=== PATIENT | female | born 1970 | race Caucasian/White ===

== ENCOUNTER → 2018-07-14 | Outpatient (CLI) | payer OTHER ==
[~2018-07-14] MED LIST: IOPAMIDOL (ISOVUE 370) 100 ML BTL IV ONE
== END ==
LOC: FIMAGING 15:12
PROVIDERS: ATTEND Internal Medicine
DX: R51 Headache (principal); R44.2 Other hallucinations
CPT/HCPCS: Q9967

== ENCOUNTER → 2018-07-30 | Outpatient (CLI) | payer OTHER | LOC: FIMAGING 10:13 | PROVIDERS: ATTEND Psychiatry & Neurology Neurology | DX: R44.2 Other hallucinations (principal); M48.02 Spinal stenosis, cervical region ==

== ENCOUNTER → 2018-09-19 | Outpatient (CLI) | payer OTHER ==
--- NOTE | 2018-09-19 14:36 | CPEEG ---
[f rep st] ELECTROENCEPHALOGRAM FOUR-HOUR VIDEO ELECTROENCEPHALOGRAM DATE OF STUDY: 09/19/2018 INTERPRETATION: This 4-hour video EEG recording is normal. There were no potentially epileptogenic abnormalities present during the awake or sleep recordings. During the video EEG monitoring session, the patient did not have any clinical events. REPORT: This 4-hour video EEG contains 10 Hz of alpha activity over the posterior head regions. The background activity was normal and symmetric. There was no abnormal activation at rest, during phot ic stimulation, or hyperventilation. The patient became drowsy and fell into a sustained sleep durin g the study. There was no abnormal activation during drowsiness, sleep, or during times of arousal. The patient did not have any clinical events during the video EEG monitoring session. /[id number]/MODL
== END ==
LOC: FCPNEURO 08:29
PROVIDERS: ATTEND Psychiatry & Neurology Neurology
DX: R44.2 Other hallucinations (principal)